=== PATIENT | female | born 1945 | race Caucasian/White ===

== ENCOUNTER → 2020-07-30 | Outpatient (CLI) | payer MEDICARE ==
[~2020-07-30] MED LIST: ACIDOPHILUS; ALBU90OI INH; ASPI81CH PO; DICMIS75EC PO; EPIN.3I IM; FISH1000 PO; LATA.005SO; METO50ER PO; OMEP20ER PO
== END | disposition home or self-care (01) ==
LOC: LAB 11:23 → LAB SHORT 11:23
DX: D48.5 Neoplasm of uncertain behavior of skin (principal)
CPT/HCPCS: 88305

== ENCOUNTER 2021-01-31 17:13 | Inpatient (IN) | payer MEDICARE ==
[~2021-01-31] VITALS: Ht 154.9 cm; Wt 85.2 kg
[~2021-01-31 17:13] MED LIST changes: +FISH OIL 1,2001 EAC7 PO; -FISH1000 PO
[2021-01-31] MEDS ORDERED: NEURONTIN300 MG PO (17:26)
[2021-01-31] MEDS ORDERED: LOSA50 PO (17:27)
[2021-01-31 17:58] LABS: BASOPHILS ABSOLUTE AUTO 0.01 K/mm3 (0.00-0.23); BASOPHILS PERCENT AUTO 0 % (0-2); EOSINOPHILS PERCENT AUTO 0 % (0-6); Hematocrit 40.9 % (33.0-51.0); Hemoglobin 13.6 g/dL (11.5-16.0); IMMATURE GRAN ABSOLUTE AUTO 0.05 K/mm3 (0.00-0.10); IMMATURE GRAN PERCENT AUTO 1 % (0-1); LYMPHOCYTES ABSOLUTE AUTO 1.38 K/mm3 (0.84-5.20); LYMPHOCYTES PERCENT AUTO 25 % (21-46); MONOCYTES ABSOLUTE AUTO 0.34 K/mm3 (0.16-1.47); MONOCYTES PERCENT AUTO 6 % (4-13); Mean Corpuscular HGB 30.3 pg (26.0-34.0); Mean Corpuscular HGB Conc 33.3 g/dL (31.5-36.5); Mean Corpuscular Volume 91 fL (80-100); Mean Platelet Volume 9.7 fL (9.1-12.4); NEUTROPHILS ABSOLUTE AUTO 3.68 K/mm3 (1.96-9.15); NEUTROPHILS PERCENT AUTO 67 % (41-73); Platelet Count 167 K/mm3 (150-400); RDW Coefficient Variation 12.5 % (11.7-14.2); RDW Standard Deviation 41.9 fL (35.1-46.3); Red Blood Cell Count 4.49 M/mm3 (3.80-5.20); White Blood Cell Count 5.46 K/mm3 (4.00-11.30)
[2021-01-31 18:40] LABS: Alanine Aminotransfer (ALT/SGP 24 U/L (12-78); Albumin, Blood 3.1 g/dL (3.4-5.0); Albumin/Globulin Ratio 0.8 (0.8-1.8); Alk Phos 54 U/L (50-136); Anion Gap 5 mmol/L (6-16); Aspartate Aminotrans (AST/SGOT 39 U/L (12-37); Bilirubin, Total 0.3 mg/dL (0.1-1.0); Blood Urea Nitrogen 19 mg/dL (8-24); Bun/Creatinine Ratio 21.4 (12.0-20.0); CO2, Blood 25 mmol/L (21-32); Calcium, Blood 8.2 mg/dL (8.5-10.1); Chloride, Blood 104 mmol/L (98-108); Creatinine, Blood 0.89 mg/dL (0.40-1.00); Glomerular Filtration Rate >60 (60-); Glucose, Blood 111 mg/dL (70-99); Potassium, Blood 4.2 mmol/L (3.5-5.5); Sodium, Blood 134 mmol/L (136-145); Total Protein, Blood 7.1 g/dL (6.4-8.2)
[2021-01-31 18:42] LABS: Lactate Dehydrogenase (Ld),Bld 311 U/L (100-240); Troponin I <0.015 ng/mL (0.000-0.040)
--- NOTE | 2021-01-31 21:03 | NUR ---
REPORT RECIEVED FROM JAIME ROCHA RN AT 2100 AND AWAITING PT T/F TO ROOM 326.
[2021-01-31 22:07] LABS: Source, Urine Clean Catch
[2021-01-31 22:12] LABS: Bilirubin, Urine Neg (Neg); Blood, Urine 1+ (Neg); Glucose Qualitative, Urine Neg (Neg); Ketones, Urine Neg (Neg); Leukocyte Esterase, Urine 2+ (Neg); Nitrite, Urine Neg (Neg); Protein, Urine 2+ (Neg); Urobilinogen, Urine NORM (Normal)
[2021-01-31 22:20] LABS: Appearance, Urine Hazy (Clear); Color, Urine Yellow (P-Yellow)
[2021-01-31 22:21] LABS: Amorphous Light (0-Heavy); Bacteria Mod /hpf; Mucus Light (0-Heavy); Red Blood Cells, Urine 0-2 /hpf (0-2); Squamous Epithelial Cells Few /hpf (Few)
--- NOTE | 2021-01-31 22:23 | NUR ---
URINE SPECIMEN OBTAINED AND SENT.
--- NOTE | 2021-02-01 00:20 | NUR ---
UPDATE PROVIDED TO PT'S FAMILY MEMBER (ZULEMA) W/PT CONSENT.
--- NOTE | 2021-02-01 02:00 | NUR ---
PT RESTING QUIETLY IN BED W/O COMPLAINTS OR S/S DISTRESS. 5.5L O2 VIA NC IN PLACE AND SPO2 WNL ON CONT BIOX.
--- NOTE | 2021-02-01 04:19 | NUR ---
SUMMARY: PT A/OX4, CALLS APPROPRIATELY TO SPECIFY NEEDS AND IS PLEASANT AND COOPERATIVE W/CARE. SHE'S SBA TO BSC D/T DIZZINESS PRIOR TO ADMISSION AND SOB/DYSPNEA UPON EXERTION. PT ALSO C/O OF FEELING GENERALLY WEAK AND FATIGUED. LS ARE COARSE W/RESPS SHALLOW BUT UNLABORED AT REST. DEEP BX'S CAUSE COUGHING FITS BUT SCHEDULED MUCINEX AND PRN ROBITUSSIN WERE RX'D AND RECIEVED FOR SOME IMPROVEMENT. COUGH IS DRY, HACKING AND NONPRODUCTIVE. PT REMAINS ON 5.5L O2 VIA NC W/CONT BIOX INTACT, SPO2 >92%. REMDESIVIR AND IV STERIODS RECIEVED IN ER. SHE'S NSR AT 60'S-70'S BPM ON TELEMETRY. PT TYPICALLY DOESN'T HAVE ISSUES W/INCONTINENCE AT BASELINE BUT IS WEARING BRIEF FOR STRESS/URGE INCONTINENCE. UA OBTAINED/SENT. NO ACUTE CHANGES, VSS/AFEBRILE. WCTM AND REPORT TO DAY RN.
[2021-02-01 05:55] LABS: Anion Gap 7 mmol/L (6-16); Blood Urea Nitrogen 18 mg/dL (8-24); Bun/Creatinine Ratio 27.5 (12.0-20.0); CO2, Blood 23 mmol/L (21-32); Calcium, Blood 8.4 mg/dL (8.5-10.1); Chloride, Blood 107 mmol/L (98-108); Creatinine, Blood 0.65 mg/dL (0.40-1.00); Glomerular Filtration Rate >60 (60-); Glucose, Blood 163 mg/dL (70-99); Potassium, Blood 4.8 mmol/L (3.5-5.5); Sodium, Blood 137 mmol/L (136-145)
--- NOTE | 2021-02-01 10:45 | NUR ---
TRANSFER NOTE PT TRANSFERRED TO PCU 4 FOR INCREASING RESPIRATORY NEEDS. PT IS COVID 19 POSITIVE AND REQUIRING 10L O2 VIA OXIMIZER AT TIME OF TRANSFER WITH O2 SATS FLUCUTATING IN MID-HIGH 80%. PT LYING PRONE THIS AM, REPORTING POOR APPETITE, BUT DENIES PAIN. PT GETTING SOB WITH ANY ACTIVITY/POSITION CHANGES. RT IN FOR TREATMENTS. PT DAUGHTER'S ZULEMA CALLED FOR UPDATE AFTER TRANSFER. PT VERBALIZES UNDERSTANDING OF PLAN OF CARE CHANGES. REPORT CALLED TO RADHA KNIGHT RN.
--- NOTE | 2021-02-01 10:50 | NUR ---
REPORT RECIEVED FROM [facility] MARC[facility] RN. PT HAS INCREASING OXYGEN REQUIREMENTS FROM 5L AT THE START OF SHIFT UP TO 10L CURRENTLY. PT IS COOPERATIVE WITH PRONING. PT ARRIVED TO PCU 04. SHE IS ALERT AND ORIENTED. DENIES PAIN. STATES, "I AM JUST SO WEAK." OXYGEN 92% ON 10L AT THIS TIME. LS WITH FINE CRACKLES IN THE BASES. VSS. PT ENCOURAGED TO PRONE FOR AT LEAST 4 HOURS IF SHE CAN TOLERATE IT, PT IS AGREEABLE. PT ASSISTED TO PRONE POSITION. CALL LIGHT IN REACH, WILL CONTINUE TO MONITOR.
--- NOTE | 2021-02-01 13:03 | NUR ---
PTS BIOX SITTING IN THE HIGH 80S WITH 10L, OXYGEN TITRATED UP TO 11L. FAMILY CALLED, DAUGHTER ZULEMA AND OTHER DAUGHTER PAGE PROVIDED WITH AN UPDATE. WILL CALL MD TO TOUCH BASE WITH THEM WELL. PT CONTINUES TO PRONE. CALL LIGHT IN REACH. WILL CONTINUE TO MONITOR.
--- NOTE | 2021-02-01 14:55 | NUR ---
UPDATE: OXYGEN REQUIREMENTS HAVE INCREASED FOR PATIENT. I NOW HAVE HER ON 14L VIA OXUMIZER. VENTURI MASK PLACED, 14L 55%, BIOX 88-90%. CALL PLACED TO MD FOR UPDATE IN INCREASING OXYGEN REQUIREMENTS. SEE NEW ORDERS. RT CALLED TO COME AND ASSESS THE PATIENT. CLAUDIO RT TO ROOM. PT PLACED ON AIRVO 40L WITH FIO2 71%, BIOX 90-92. BELLA PLACED AND ONE TIME DOSE OF LASIX GIVEN AND BELLA PLACED. PT HAS SOME REDNESS TO HER LABIA, PER PATIENT "I WAS WET FOR A COUPLE OF DAYS AT HOME." PT ASSISTED TO PRONE. PT DENIES OTHER NEEDS AT THIS TIME. CALL LIGHT IN REACH. WILL CONTINUE TO MONITOR.
[2021-02-01 15:14] LABS: Source, Urine Catheter
[2021-02-01 15:41] LABS: Appearance, Urine Clear (Clear); Bilirubin, Urine Neg (Neg); Blood, Urine Neg (Neg); Color, Urine Yellow (P-Yellow); Glucose Qualitative, Urine Neg (Neg); Ketones, Urine Neg (Neg); Leukocyte Esterase, Urine Neg (Neg); Nitrite, Urine Neg (Neg); Protein, Urine Neg (Neg); Specific Gravity, Urine 1.015 (1.003-1.022); Urobilinogen, Urine NORM (Normal)
--- NOTE | 2021-02-01 17:00 | NUR ---
ASSESSMENT UNCHANGED. PT'S OXYGEN REQUIREMENTS INCREASED AND SHE IS ON AIRVO 40L, FIO2 WAS 70S, PTS SATURATIONS DROPPED DOWN TO 88-89%. FIO2 INCREASED TO 80% PTS OXYGEN SATRUATIONS IMPROVED TO 90%. OTHER VSS. LOVENOX GIVEN. PT DENEIS OTHER NEEDS AT THIS TIME. CALL LIGHT IN REACH. WILL CONTINUE TO MONITOR.
--- NOTE | 2021-02-01 18:34 | NUR ---
SUMMARY: PATIENT CAME DOWN FROM THE MEDICAL FLOOR TODAY AROUND 11 FOR INCREASING OXYGEN REQUIREMENTS. WHEN SHE STARTED THE SHIFT SHE WAS ON 5L VIA NC, HE NEEDS INCREASED THROUGH OUT THE DAY. SHE IS NOW ON AIRVO 40L FIO2 80%. PATIENT HAS BEEN COUGHING ALOT, MUCINEX AND PRN ROBITUSSIN GIVEN. PATIENT WAS ABLE TO PRONE FOR ABOUT 4 HOURS COLLETIVELY TODAY. DAUGHTERS HAVE BEEN UPDATED. WILL REPORT TO ONCOMING RN.
--- NOTE | 2021-02-02 04:57 | NUR ---
SHIFT SUMMARY PATIENT IS ALERT AND ORIENTED X4, COOPERATIVE WITH CARE. PATIENT ABLE TO PRONE FOR A COUPLE HOURS, SAYS SHE WILL TRY AGAIN THIS MORNING. 02 SATS 92% ON AIRVO AT 40L 86% FI02. MEDICATED FOR ANXIETY PER EMAR. PATIENT COUGHING KEEPING HER FROM SLEEPING MEDICATED PER EMAR AND CALLED HOSPITALIST FOR TESSALON. BELLA DRAINING. VSS, NO ACUTE CHANGES. CALL LIGHT IN REACH.
--- NOTE | 2021-02-02 08:10 | NUR ---
Initial Assessment: Patient is awake and sitting up in bed after eating breakfast. Patient is alert and oriented. Patient is at times having difficulty answering questions. She admits she is feeling, " a little bit foggy today." Patient did not sleep well last night. Patient denies pain at this time. HRR, SR in the 60s per telemetry. LS Dim with crackles in the bases. Biox low 90s with AIRVO on, 50L FIO2 83%. Patient continues to have a harse dry cough, mucinex and tessalon pearls given with AM meds. BT+. PPP. 2+ non-pitting edema to BLE. VSS. Patient states she is "just exhuasted today." Zofran given for nausea. Patient denies other needs at this time, call light in reach.
[2021-02-02 08:59] LABS: Anion Gap 9 mmol/L (6-16); Blood Urea Nitrogen 31 mg/dL (8-24); Bun/Creatinine Ratio 40.3 (12.0-20.0); CO2, Blood 23 mmol/L (21-32); Calcium, Blood 8.6 mg/dL (8.5-10.1); Chloride, Blood 106 mmol/L (98-108); Creatinine, Blood 0.77 mg/dL (0.40-1.00); Glomerular Filtration Rate >60 (60-); Glucose, Blood 161 mg/dL (70-99); Potassium, Blood 3.9 mmol/L (3.5-5.5); Sodium, Blood 138 mmol/L (136-145)
--- NOTE | 2021-02-02 12:00 | NUR ---
ASSESSMENT: UNCHANGED FROM INITIAL ASSESSMENT. PT IS ASSITED BACK TO SUPINE POSITION DUE TO BACK PAIN AND LUNCH ARRIVING. WHILE PATIENT WAS PRONING HER OXYGEN SATURATIONS WERE HIGH 95%, BIOX NOW 88%. OTHER VSS. PT DENIES OTHER NEEDS AT THIS TIME. CALL LIGHT IN REACH. WILL CONTINUE TO MONITOR.
--- NOTE | 2021-02-02 16:04 | NUR ---
ASSESSMENT: ASSESSMENT UNCHANGED. VSS. PT OFFERED BED BATH, SHE WOULD LIKE TO WAIT, SHE IS TIRED AND WANTS TO NAP RIGHT NOW. PT DENIES OTHER NEEDS AT THIS TIME. CALL LIGHT IN REACH. WILL CONTINUE TO MONITOR.
--- NOTE | 2021-02-02 17:27 | NUR ---
SUMMARY: PATIENT HAS DONE OKAY TODAY. SHE WAS ABLE TO PRONE FOR APPROXIMATELY 3 HOURS EARLIER IN THE SHIFT. SHE HAS REMAINED SUPINE SINCE 12PM. OXYGEN NEEDS HAVE NOT CHANGED THIS SHIFT. SHE HAS AIRVO 50L FIO2 83%. VSS THOUGH OUT THE SHIFT. ONE TIME DOSE LASIX GIVEN AFTER BMP CHECKED BY HOSPITALIST. CALL LIGHT IN REACH. WILL REPORT TO ONCOMING RN.
[2021-02-03 05:23] LABS: Anion Gap 9 mmol/L (6-16); Blood Urea Nitrogen 37 mg/dL (8-24); Bun/Creatinine Ratio 46.1 (12.0-20.0); CO2, Blood 23 mmol/L (21-32); Calcium, Blood 8.5 mg/dL (8.5-10.1); Chloride, Blood 104 mmol/L (98-108); Glomerular Filtration Rate >60 (60-); Glucose, Blood 142 mg/dL (70-99); Potassium, Blood 3.7 mmol/L (3.5-5.5); Sodium, Blood 136 mmol/L (136-145)
--- NOTE | 2021-02-03 05:26 | NUR ---
SHIFT SUMMARY ASSUMED CARE OF PT AT 1900. PT IS A/OX4. HEART SOUNDS REGULAR, LUNG SOUNDS HAVE FINE CRACKLES T/O THE BASES. PT IS ON THE AIRVO MACHINE, SETTINGS 50L/83%FIO2. PT STILL FEELS SOB. PT WAS ENCOURAGED TO PRONE AND PRONES TWICE FOR ABOUT 4 HOURS DURING THE NIGHT. SATURATIONS REMAINED BETWEEN 88-92%. PT CATHETER IS DRAINING YELLOW URINE. PT HAS 2+ PITTING EDEMA IN HER L ARM AND BILATERAL LEGS. PT STATES THIS IS HER BASELINE. PT WAS TEARFUL AT THE BEGINNING OF THE SHIFT. PT STATED THAT " I WAS JUST OVERWHELMED". PT REMAINMED CHEERFUL AFTER THIS. CALL LIGHT IN REACH, BED IN LOWEST POSTION.
--- NOTE | 2021-02-03 17:28 | NUR ---
PT SUMMARY: PT REMAINS ON AIRVO 50% 80L SATTING ABOVE 90% DESATS WITH EXERTION BUT RECOVERS QUICK. PT COMPLIANT WITH SELF PRONING, TURNS AND REPOSITION WELL. ENCOURAGE DEEP BREATHING EXERCISES. THE REST OF THE VITALS HAS BEEN STABLE. BUSPAR WAS GIVEN X1 FOR ANXIETY AND WAS EFFECTIVE. NO OTHER ISSUES ENCOUNTERED FOR THE SHIFT, PT MOSTLY IN BED RESTING CALLS APPROPRIATELY ABLE TO MAKE NEEDS KNOWN. WILL MONITOR TO REPORT TO ONCOMING SHIFT
--- NOTE | 2021-02-04 05:08 | NUR ---
SHIFT SUMMARY PT A&OX4. SP02>90% ON 50L AIRVO, 82% FI02. PT PRONES SELF. TELEMETRY READS NSR, HR 70'S. PT HAD 1 5BEAT RUN OF Pily SALGADO. PT DENIES PAIN. REMDESIVER INFUSED PER EMAR. BELLA CATHETER DRAINING CLEAR YELLOW URINE TO GRAVITY. NO BM THIS SHIFT, PT STATES NO BM IN A WEEK. DOES NOT C/O OF CONSTIPATION OR PAIN. CALL LIGHT IN REACH. WILL GIVE REPORT TO ONCOMING NURSE.
--- NOTE | 2021-02-04 18:31 | NUR ---
PT HAS BEEN UP TO BEDSIDE CHAIR T/O THE DAY. PT ON AIRVO AT 50L 69% WITH SPO2 >87%. PT WITH EXTREME ANXIETY THIS AM SOBBING AND WAS NOT CONSOLABLE THIS AM, PT EXPRESSED GUILT THAT S/O NEEDS TO HAVE COVID TESTING AND FRIEND IS IN ICU. PT A/O X3 ANSWERING QUESTIONS APPOPRIATELY ON 5-6 WORD SENTENCES. PT WAS A 1 PERSON ASSIST TO BSC THIS AM. PT IS HIGHLY MOTIVATED TO WORK WITH THERAPY AND GET BETTER SO THAT SHE CAN GO HOME
[2021-02-05 04:39] LABS: Hematocrit 42.8 % (33.0-51.0); Hemoglobin 14.2 g/dL (11.5-16.0); Mean Corpuscular HGB 30.6 pg (26.0-34.0); Mean Corpuscular HGB Conc 33.2 g/dL (31.5-36.5); Mean Corpuscular Volume 92 fL (80-100); Mean Platelet Volume 9.6 fL (9.1-12.4); Platelet Count 310 K/mm3 (150-400); RDW Coefficient Variation 12.5 % (11.7-14.2); RDW Standard Deviation 42.4 fL (35.1-46.3); Red Blood Cell Count 4.64 M/mm3 (3.80-5.20); White Blood Cell Count 10.08 K/mm3 (4.00-11.30)
[2021-02-05 04:55] LABS: Anion Gap 7 mmol/L (6-16); Blood Urea Nitrogen 35 mg/dL (8-24); Bun/Creatinine Ratio 47.3 (12.0-20.0); CO2, Blood 25 mmol/L (21-32); Calcium, Blood 8.5 mg/dL (8.5-10.1); Chloride, Blood 105 mmol/L (98-108); Creatinine, Blood 0.74 mg/dL (0.40-1.00); Glomerular Filtration Rate >60 (60-); Glucose, Blood 131 mg/dL (70-99); Potassium, Blood 4.1 mmol/L (3.5-5.5); Sodium, Blood 137 mmol/L (136-145)
--- NOTE | 2021-02-05 05:33 | NUR ---
PATIENT HAS BEEN CRYING THIS EVENING AT THE BEGINNING OF SHIFT ONCE CALMED, SHE STARTED COUGHING, EDUCATION GIVEN TO COVER COUGH WITH STAFF IN THE ROOM, PATIENT STARTED TO CALL DAUGHTER WHILE MEDICATIONS WERE GIVEN, SHE WAS SPEAKING FINE AND COUGH HAD SUBSIDED, WHEN DAUGHTER GOT ON THE PHONE SHE BEGAN TO SLOW HER SPEECH AND STATED SHE COULDN'T TALK, ONCE OF THE PHONE WITH DAUGHTER SHE WAS PERKED UP AND TALKING NORMALLY. AFTER RECEIVING EVENING MEDICATIONS AT 2030 PATIENT SLEPT UNTIL 0330. SHE IS UP AND DOING HER CROSSWORDS AND WATCHING TV. VITALS HAVE REMAINED UNCHANGED, AIRVO 70%/50L, BELLA CATHETER IN PLACE DRAINING CLEAR YELLOW, CALL LIGHT WITHIN REACH.
--- NOTE | 2021-02-05 18:44 | NUR ---
PT A/O X4 PLEASANT AND CHEERFUL TODAY. O2 NEEDS HAVE REMAINED CONSTANT TODAY, PT STS BREATHING FEELS BETTERBUT SHE IS VERY TIRED TODAY. PT HAS BEEN UP TO BEDSIDE CHAIR FOR MOST OF THE DAY. VSS. THERE ARE NO ACUTE CHANGES THIS CHIFT
--- NOTE | 2021-02-06 00:50 | NUR ---
PATIENT IS ALERT AND ORIENTED X4, VERY ANXIOUS, MEDICATED PER EMAR. 02 SATS 93% ON AIRVO. SOB WITH ACTIVITY. COUGHING UP MODERATE AMOUNT OF MUCOUS. DENIES CP/PRESSURE. TEACHING ON 02 THERAPY WITH PATIENT AND FAMILY VIA FACETIME. ENCOURAGED PRONING WHICH PATIENT STRUGGLES WITH DUE TO ANXIETY. MEDICATED FOR GENERALIZED PAIN PER EMAR. PT NOW SLEEPING. CALL LIGHT IN REACH.
--- NOTE | 2021-02-06 01:25 | NUR ---
ASSUMED CARE RECEIVED REPORT FROM FREDDY VÁZQUEZ AND ASSUMED CARE. PT IS RESTING IN BED WITH AIRVO IN PLACE, SATS 94% ON 69% FIO2. NO ACUTE DISTRESS, WILL CONTINUE PLAN OF CARE.
[2021-02-06 04:41] LABS: Anion Gap 8 mmol/L (6-16); Blood Urea Nitrogen 33 mg/dL (8-24); CO2, Blood 24 mmol/L (21-32); Calcium, Blood 8.5 mg/dL (8.5-10.1); Chloride, Blood 104 mmol/L (98-108); Creatinine, Blood 0.66 mg/dL (0.40-1.00); Glomerular Filtration Rate >60 (60-); Glucose, Blood 148 mg/dL (70-99); Potassium, Blood 4.1 mmol/L (3.5-5.5); Sodium, Blood 136 mmol/L (136-145)
--- NOTE | 2021-02-06 18:44 | NUR ---
PT HAS BEEN UP TO BEDSIDE CHAIR T/O THE DAY. PT HAS COMPLAINED OF ANXIETY A FEW TIMES TODAY WHICH WAS RELIEVED WITH BUSPAR. PT HAS BEEN ON HER PHONE TALKING ON FACETIME T/O THE WHOLE DAY. VSS. MARSN. STS BREATHING HAS IMPROVED. THERE ARE NO OTHER ACUTE CHANGES TO NOTE DURING THIS SHIFT
[2021-02-07 04:25] LABS: Anion Gap 5 mmol/L (6-16); Blood Urea Nitrogen 35 mg/dL (8-24); CO2, Blood 27 mmol/L (21-32); Calcium, Blood 8.5 mg/dL (8.5-10.1); Chloride, Blood 103 mmol/L (98-108); Creatinine, Blood 0.65 mg/dL (0.40-1.00); Glomerular Filtration Rate >60 (60-); Glucose, Blood 153 mg/dL (70-99); Sodium, Blood 135 mmol/L (136-145)
--- NOTE | 2021-02-07 06:10 | NUR ---
SHIFT SUMMARY PATIENT IS ALERT AND ORIENTED X4, VERY ANXIOUS BUT CALMS DOWN WHEN SHE HAS SOMEONE TO TALK TO. 02 SATS 91% ON AIRVO @50L FI02 69%, SOB AND COUGH WITH ACTIVITY. ENCOURAGED TO PRONE, PATIENT SLEPT ON HER SIDE FOR PART OF THE NIGHT. HR SB-SR 50s-60s. 1 PERSON ASSIST WITH FWW. SHAYNE NIEVES. CALL LIGHT IN REACH.
--- NOTE | 2021-02-07 20:28 | NUR ---
PT VSS AND GIVEN BUSPIRONE 2X FOR REPORTED ANXIETY; PT REPORTED UNEVENTFUL DAY AND NO FURTHER SYMPTOMS, PT RECEIVED DISTRESSING NEWS AT 1800 AND REQUIRED BEDSIDE VERBAL COMFORTING THROUGH THE EXPERIENCE, PT COMMUNICATING WITH FAMILY VIA VIDEOCHAT, PT DENIES ADDITIONAL CONCERNS AT THIS TIME
[2021-02-08 04:11] LABS: Anion Gap 5 mmol/L (6-16); Blood Urea Nitrogen 34 mg/dL (8-24); Bun/Creatinine Ratio 49.6 (12.0-20.0); CO2, Blood 28 mmol/L (21-32); Calcium, Blood 8.5 mg/dL (8.5-10.1); Chloride, Blood 102 mmol/L (98-108); Creatinine, Blood 0.69 mg/dL (0.40-1.00); Glomerular Filtration Rate >60 (60-); Glucose, Blood 146 mg/dL (70-99); Sodium, Blood 135 mmol/L (136-145)
--- NOTE | 2021-02-08 06:50 | NUR ---
SHIFT SUMMARY: JATIN IS A&OX4, VSS, NO ACUTE EVENTS OVERNIGHT. MAINTAINING SATS ON AIVO @ 50 L. SHE IS IN GOOD SPIRITS THIS MORNING, TOLERATING PO INTAKE WELL, SHE IS A ONE PERSON ASSIST WITH THE FWW, REQUESTING TO TAKE A SHOWER IN THE BATHROOM TODAY, IF POSSIBLE. SHE IS LYING IN BED WITH THE CALL LIGHT IN REACH. WILL REPORT TO DAY SINCERE VÁZQUEZ.
--- NOTE | 2021-02-08 15:45 | NUR ---
EPISODE OF A 6 BEAT RUN OF VTACH. DENIES SYMPTOMS. TELE SHOWING SINUS WITH HR 70'S AT THIS TIME. CALL LIGHT IN REACH. WILL CONTINUE TO MONITOR.
--- NOTE | 2021-02-08 18:52 | NUR ---
SHIFT SUMMARY: PT ALERT AND ORIENTED X4. NEURO WNL. A LITTLE EMOTIONAL THIS AM. ANXIOUS THIS EVENING, MEDICATED PER EMAR AND PATIENT REQUEST. PUPILS EQUAL, ROUND, REACTIVE. ON AIRVO AT 50L AND 71%. SATING LOW 90'S. TELE SHOWING SINUS WITH HR 60-70'S. DENIES CHEST PAIN/PRESSURE. BOWEL TONES PRESENT. BELLA IN PLACE DRAINING TO GRAVITY. PPP. PT STATING SHE IS TIRED TODAY AND REFUSING TO MOVE TO CHAIR. ABLE TO TURN SELF IN BED. DRINKING AND EATING WELL. BOWEL CARE MEDS IN PLACE. LYMPHEDEMA IN LUE. HX OF LYMPH NODE REMOVAL. DENIES NEEDS AT THIS TIME. CALL LIGHT IN PLACE. TALKING WITH FAMILY ON PHONE THROUGHOUT THE DAY. WILL REPORT OFF TO ONCOMING RN.
--- NOTE | 2021-02-09 05:56 | NUR ---
SHIFT SUMMARY ASSUMED CARE OF PT AT 1900. PT IS A/OX4. HEART SOUNDS REGULAR, LUNG SOUNDS ARE COURSE WITH CRACKLES AT THE BASES. PT IS ON AIRVO 50L AT 71%. SATURATIONS HAVE BEEN 90-93%. PT HAS A CATHETER DRAINING WITH GRAVITY, URINCE IS CLEAR AND YELLOW. PT RECEIVED A BED BATH THIS SHIFT WHICH HELPED HER FEEL BETTER MENTALLY. CALL LIGHT IN REACH, BED IN LOWEST POSTION.
--- NOTE | 2021-02-09 18:18 | NUR ---
PT SUMMARY: PT HAD CONSITPATION ISSUES FOR THE SHIFT, PT WAS ASSISTED TO BEDSIDE COMMODE WITH NO RESULT ENEMA WAS GIVEN PT WAS ASSISTED BACK IN BED HAD EXTRA LARGE BM SOFT/HARD BROWN STOOLS. PT FELT A LOT MUCH BETTER AFTER. PT ALSO TITRATED ON AIRVO FROM 50L 70% TO 45L 60%PT TOLERATED WELL SATTING 90-94%, PT ALSO WAS ABLE TO STAND AND EXERCISE A LITTLE BITPT DESATS TO 88% PT QUICKLY RECOVERED. NO OTHER ISSUES REPORTED THE REST OF THE VITALS HAS BEEN STABLE. AFEBRILE. PT ABLE TO MAKE NEEDS KNOWN, WILL MONITOR
--- NOTE | 2021-02-10 05:06 | NUR ---
SHIFT SUMMARY NO ACUTE CHANGES THIS SHIFT. PT A&OX4, ANXIOUS AT TIMES. SPOKE TO DAUGHTER ON PHONE MULTIPLE TIMES DURING SHIFT. SP02>90% ON 45L BIPAP, 56% FI02. TELEMETRY READS NSR, HR 60'S. PT DENIES PAIN. PT C/O OF NAUSEA X1 THIS SHIFT. MEDICATED W/ ZOFRAN PER EMAR. BELLA CATHETER DRAINING CLEAR YELLOW URINE TO GRAVITY. PT DID ASK FOR AND ATE ADDITIONAL ROLLS FROM DINNER, STATES "THATS ALL THAT SOUNDS GOOD." PT SLEPT T/O NIGHT. CALL LIGHT IN REACH. WILL GIVE REPORT TO ONCOMING NURSE.
--- NOTE | 2021-02-10 17:39 | NUR ---
PT SUMMARY: PT TITRATED DOWN TO 6 VIA HIFLO NASAL CANNULA PT SATTING ABOVE 92%, MILD SOB OCCASIONAL COUGH. PT WAS UP IN THE CHAIR MOST OF THE SHIFT. VITALS STABLE. NO OTHER COMPLAINS/ISSUES REPORTED. PT ABLE TO MAKE NEEDS KNOWN, CALLS APPROPRIATE. WILL REPORT TO ONCOMING SHIFT
--- NOTE | 2021-02-11 04:56 | NUR ---
SHIFT SUMMARY NO ACUTE CHANGES THIS SHIFT. VSS. REMAINS ON 6LHIFLO WITH SPO2 FROM 90%-92%. REMAINS IN SR. AXO AND COOPERATIVE. PT STAYTES BREATHING FEELS "IMPROVED" AND SHE IS EXCITED ABOUT GOING HOME SOON SHE CONTINUALLY PROGRESSES. PT HAS SOME ANXIETY AT BEGINNING OF SHIFT, MEDS PER EMAR SUCCESFUL AT RELIEVING THIS PER PT REPORT. OTHERWISE, PT RESTING OFF AND ON, WCTM.
--- NOTE | 2021-02-11 18:02 | NUR ---
PT HAS BEEN RESTING WELL IN BEDSIDE CHAIR T/O THE DAY. PT A/O X3, ANSWERING QUESTIONS APPROPRIATELY IN FULL SENTENCES. VSS. PT REPORTS IMPROVED BREATHING, DENIES CP. NADN. NO FURTHER CHANGES TO NOTE
--- NOTE | 2021-02-12 05:28 | NUR ---
SHIFT SUMMARY ASSUMED CARE OF PT AT 1900. PT IS A/OX4. PT SATED THAT IT WAS HER FRIENDS TOMORROW, 02/12. THIS MADE PT VERY SAD, PT WAS NOT ABLE TO SLEEP WELL DURING THE NIGHT. PT WAS LISTENING TO LOUD MUSIC IN HER ROOM THIS AM SINGING AND REMINISING ABOUT HER FRIEND. HEART SOUNDS REGULAR, LUNG SOUNDS HAVE CRACKELS AT THE BASES, PT TITRATED DOWN TO 10L NC, SATURATIONS ABOVE 95%. PT REPORTED USING INSENTIVE SPIROMETER. PT CATHETER IS DRAINING YELLOW URINE, WITH SOME SEDIMENT. CALL LIGHT IN REACH, BED IN LOWEST POSTION.
--- NOTE | 2021-02-12 18:26 | NUR ---
SHIFT SUMMARY PT ALERT AND ORIENTED. VS HAVE BEEN STABLE. PT STARTED SHIFT ON 10L NC AND HAS BEEN TITRATED DOWN TO 6L NC WITH SATURATION REMAINING ABOVE 90%. PT ABLE TO TOLERATE STANDING AND TRANSFERRING TO CHAIR OR BSC. BELLA PATENT AND DRAINING CLEAR YELLOW URINE. WILL CONTINUE TO MONITOR AND REPORT TO ONCOMING RN.
--- NOTE | 2021-02-13 05:57 | NUR ---
SHIFT SUMMARY ASSUMED CARE OF PT AT 1900. PT IS A/OX4. PT IS VERY TIRED TODAY BEUCASE SHE DID NOT SLEEP WELL YESTERDAY. HEART SOUNDS REGULAR, LUNG SOUNDS HAVE CRACKLES AT THE BASES. PT WAS TITRATED DOWN TO 5L NC. PT DESATURATED WHEN SHE COUGHED BUT RECOVERED WITHIN SECONDS, PT REPORTS USING INCENTIVE SPIROMETER. CATHETER DRAINING CLEAR YELLOW URINE. PT WAS A 1P SBA TO BED. PT REPORTS STILL BEING SAD ABOUT NOT BEING ABLE TO GO TO HER FRIENDS . CALL LIGHT IN REACH, BED IN LOWEST POSTION.
--- NOTE | 2021-02-13 17:50 | NUR ---
PT SUMMARY: NO ACUTE CHANGED FOR THE SHIFT, PT NOW ON 3L OF O2 SATS RANGING 90-93%, THE REST OF THE VITALS STBALE. PT RECEIVED A BATH TODAY. PT WAS UP IN THE RECLINER CHAIR MOST OF THE SHIFT, WAS UP AND MOVING AROUND VIA WALKER, DAUGHTER NORA CALLED AND UPDATED REGARDING PT'S PLAN OF CARE. NO ISSUES AT THIS TIME. WILL MONITOR
--- NOTE | 2021-02-14 06:16 | NUR ---
SHIFT SUMMARY ASSUMED CARE OF PT AT 1900. PT IS A/OX4. PT WAS VERY ANGRY THIS SHIFT BECAUSE HER YOUNGEST DAUGHTER REFUSED TO CLEAN HER HOUSE FOR HER ARRIVAL DUE TO COVID. PT WAS TEARFUL DURING THE NIGHT. HEART SOUNDS REGULAR, LUNG SOUNDS DIMINISHED. PT WAS TITRATED DOWN TO 2L NC AT 0300, SATURATIONS REMAIN 90% AND ABOVE. PT CATHETER IS DRAINING CLEAR YELLOW URINE, PT IS EXCITED TO GET IT OUT AND URINATE NORMALLY. PT C/O CONSTIPATION, MEDICATED PER EMAR. CALL LIGHT IN REACH, BED IN LOWEST POSITON.
--- NOTE | 2021-02-14 18:11 | NUR ---
PT PLAN TO DISCHARGE TOMORROW, PT WORKED WITH PT RECOMMENDED HOME HEALTH, POSS HOME O2 EVAL BEFORE DISCHARGE PT STILL DESATTING TO LOW 80'S STILL REQUIRING 02 SUPPLEMENT. PT CURRENTLY ON 2L OF O2 VIA NASAL CANNULA SATS ABOVE 90%. PT CATHETER WAS DC'D, PT HAS BEEN USING THE BEDSIDE COMMODE WITH NO PROBLEM. AMBULATES VIA WALKER SBA. NO OTHER ISSUES ENCOUNTERED FOR THE SHIFT, DAUGHTER ZULEMA AND NORA MADE AWARE OF THE PLAN. PT HAS BEEN UP IN THE RECLINER FOR MEALS. CALLS APPROPRIATELY. VITALS STABLE WILL MONITOR.
--- NOTE | 2021-02-15 06:25 | NUR ---
SHIFT SUMMARY ASSUMED CARE OF PT AT 1900. PT IS A/OX4. HEART SOUNDS REGULAR, LUNG SOUNDS DIMINISHED. PT REMAINED AT 2L NC T/O THE NIGHT WITH SATURATIONS ABOVE 90%. PT WAS CONTIENT T/O THE NIGHT. NO NEW COMPLAINTS. CALL LIGHT IN REACH, BED IN LOWEST POSTION.
[2021-02-15] MEDS ORDERED: BENZ100A PO (12:21)
[2021-02-15] MEDS ORDERED: BUSP5 PO (12:22)
[2021-02-15] MEDS ORDERED: GUAI600T33 PO (12:23)
[2021-02-15] MEDS ORDERED: DOCU100 PO (12:23)
--- NOTE | 2021-02-15 17:18 | NUR ---
PT DISCHARGED TO HOME TODAY WITH DISCHARGE ORDERS. ORDER MADE FOR HOME HEALTH REFERRAL, HOME O2 EVAL DONE. PT REQUIRING 1-2L OF O2 AT REST 5L WITH EXERTION. PT TO FF-UP WITH PCP WITHIN 2 WEEKS, DAUGHTER NORA WAS GIVEN UPDATES REGARDING PT DISCHARGE WENT OVER DISCHARGE ORDERS WELL. PRESCRIPTION SENT TO [facility], DREDGE ENGINEER ARRANGED MEDICAL TRANSPORT. ORDERED WALKER AND O2 FROM [facility]. NO OTHER ISSUES ENCOUNTERED PRIOR TO DISCHARGE, INSTRUCTIONS AND DISCHARGE MEDS DISCLOSED. PT LEFT FACILITY AT 1630 TRANSPORTED VIA WHEELCHAIR, ALL BELONGINGS SENT WITH THE PT.
== END 2021-02-15 16:32 | disposition home health service (06) | DRG 177 ==
LOC: ER 17:13 → MEDS 19:45 → PCU 02-01 10:42
PROVIDERS: Internal Medicine; Physician Assistant; ADMIT Family Medicine
PROC: 3E0333Z Introduction of Anti-inflammatory into Peripheral Vein, Percutaneous Approach (ICD-10-PCS; principal; 2021-01-31)
PROC: XW033E5 Introduction of Remdesivir Anti-infective into Peripheral Vein, Percutaneous Approach, New Technology Group 5 (ICD-10-PCS; 2021-01-31)
PROC: 8E0ZXY6 Isolation (ICD-10-PCS; 2021-01-31)
PROC: 5A0955A Assistance with Respiratory Ventilation, Greater than 96 Consecutive Hours, High Flow/Velocity Cannula (ICD-10-PCS; 2021-01-31)
PROC: XW033G6 Introduction of REGN-COV2 Monoclonal Antibody into Peripheral Vein, Percutaneous Approach, New Technology Group 6 (ICD-10-PCS; 2021-01-31)
DX: U07.1 COVID-19 (principal); J12.82 Pneumonia due to coronavirus disease 2019; J96.01 Acute respiratory failure with hypoxia; E87.1 Hypo-osmolality and hyponatremia; F41.9 Anxiety disorder, unspecified; E78.5 Hyperlipidemia, unspecified; I10 Essential (primary) hypertension; R53.1 Weakness; I89.0 Lymphedema, not elsewhere classified; Z86.73 Personal history of transient ischemic attack (TIA), and cerebral infarction without residual deficits; Z98.1 Arthrodesis status; Z98.890 Other specified postprocedural states; Z90.710 Acquired absence of both cervix and uterus; Z85.3 Personal history of malignant neoplasm of breast; Z88.0 Allergy status to penicillin; Z88.2 Allergy status to sulfonamides; Z88.8 Allergy status to other drugs, medicaments and biological substances; Z91.041 Radiographic dye allergy status; Z91.038 Other insect allergy status; Z79.899 Other long term (current) drug therapy; Z88.1 Allergy status to other antibiotic agents; Z88.6 Allergy status to analgesic agent
CPT/HCPCS: 36415; 51702; 71045; 80048; 80053; 81001; 81003; 82947; 83615; 84145; 84484; 85025; 85027; 85379; 86140; 87040; 87086; 93005; 93010; 94761; 94762; 96374; 97110; 97161; 97166; 97535; 99285-25; A9270; J1100; J1650; J1940; J2405; Q0243

== ENCOUNTER → 2023-12-14 | Outpatient (CLI) | payer MEDICARE ==
[~2023-12-14] MED LIST changes: +BENZ100A PO; +BUSP5 PO; +DOCU100 PO; +GUAI600T33 PO; +LOSA50 PO; +NEURONTIN300 MG PO
== END ==
LOC: LAB SHORT 17:45 → LAB 17:45
DX: N39.0 Urinary tract infection, site not specified (principal)
CPT/HCPCS: 87086

== ENCOUNTER → 2024-07-31 | Outpatient (CLI) | payer MEDICARE | END | disposition home or self-care (01) | LOC: LAB 10:55 → LAB SHORT 10:55 | DX: R30.0 Dysuria (principal) | CPT/HCPCS: 87086 ==